=== PATIENT | female | born 1960 | race Caucasian/White ===

== ENCOUNTER 2017-06-22 11:51 | Emergency (ER) | payer MEDICARE ==
[~2017-06-22] VITALS: Ht 160 cm; Wt 66.7 kg
[~2017-06-22 11:51] MED LIST: ADDERALL 20 MG20 MG PO; SOMA250 MG PO; VALIUM5 MG PO
--- OUTSIDE RECORDS SUMMARY | 2017-06-22 11:54 | XMS REPORT ---
Author Author [facility] Address Unknown Phone Unavailable Care Team Providers Care Medical Reception Specialist Name Role Phone IRINA OHARA Unavailable Unavailable Problems This patient has no known problems. Allergies, Adverse Reactions, Alerts This patient has no known allergies or adverse reactions. Medications This patient has no known medications. Results Test Description Test Time Test Comments Text Results Atomic Results Result Comments MRI SPINE LUMBAR WO [place] [address] Patient Name: MARTA BRAMBILA MR #: [id number] : 1960 Age/Sex: 56/F Req #: [id number] Adm Physician: Ordered by: IRINA OHARA M.D. Report #: [id number] Location: CT Room/Bed: Procedure: [id number] MRI/MRI SPINE LUMBAR WO Exam Date: 11/29/16 Exam Time: 1115 REPORT STATUS: Signed History: Several falls Comparison studies: None Technique: Sagittal, coronal and axial T2 , sagittal T1 and IR, axial spin density oblique. Intravenous contrast: None Findings: Number of lumbar vertebral bodies:5 Alignment: Normal lordosis.No scoliosis. Soft tissues: No T2 hyperintense inflammatory changes. Partially visualized T2 round hyperintensities of the right lobe of the liver, largest one measuring approximately 1.2 cm, this may represent hemangiomas or cysts. Paraspinal muscles: No signal abnormalities. No atrophy. Lower thoracic cord:Normal in signal and morphology. The tip of the conus is at L1. Cauda equina: No masses. No arachnoiditis. Vertebrae: Normal in height and signal intensity. No compression fractures, infection or neoplasm. Degenerative changes: At T12-L1, disc degeneration with loss of T2 signal and decreased intervertebral space. Patent canal and foramina L1-L2: Disc degeneration with loss of T2 signal and decreased intervertebral space. Partially without significant canal stenosis or foraminal narrowing. L2-L3: No abnormalities. L3-L4: Mild bilateral facet hypertrophy without significant canal stenosis or foraminal narrowing. L4-L5: Disc degeneration with loss of T2 signal. Diffuse disc bulge with superimposed central disc protrusion, moderate bilateral facet hypertrophy and ligamentum flavum thickening results in mild canal stenosis, narrowing of the bilateral subarticular recesses and mild bilateral foraminal narrowing. Fluid is seen at the left facet joint with periarticular inflammatory changes, secondary to synovitis. Inferiorly projecting 5 mm synovial cyst from the left facet joint. L5-S1: Disc degeneration with loss of T2 signal. Diffuse disc bulge, mild facet hypertrophy results in no significant canal stenosis or foraminal narrowing. Small central annular fissure is incidentally noted. Additional findings: None IMPRESSION : Mild canal stenosis, narrowing of the bilateral subarticular recesses and mild bilateral foraminal narrowing at L4-L5 secondary to diffuse disc bulge, superimposed small central disc protrusion and moderate bilateral facet hypertrophy. Synovitis changes with periarticular inflammation at left L4-L5 facet joint. Other mild degenerative changes without significant canal stenosis or foraminal narrowing. No acute lumbar abnormality. Signed by: DR Jaison Garrett M.D. on 11/29/2016 1:16 PM Dictated By : JAISON SERRANO MD 1316 COPY TO: IRINA OHARA M.D. MRI SPINE CERVICAL WO [place] [address] Patient Name: MARTA BRAMBILA MR #: [id number] : 1960 Age/Sex: 56/F Req #: [id number] Adm Physician: Ordered by: IRINA OHARA M.D. Report #: [id number] Location: CT Room/Bed: Procedure: [id number] MRI/MRI SPINE CERVICAL WO Exam Date: 11/29/16 Exam Time: 1115 REPORT STATUS: Signed History: Several falls. Neck and arm pain for 4 weeks Comparison studies: Same day CT C-spine Technique: Sagittal T1, T2 and IR, axial T2 and axial gradient echo Intravenous contrast: None Findings: Atlantoaxial articulation: Degenerative changes given by decreased predental space, marginal osteophytes and sclerotic changes Alignment: Normal lordosis No scoliosis. Cervicomedullary junction: No abnormalities. Patent foramen magnum. Soft tissues: No gross abnormalities. The cervical spinal cord is normal in size and signal intensity. Surgical changes: Anterior plate, screws and intervertebral spacers from C4 through T1. No evidence of hardware complication Vertebrae: No acute fractures, infection or neoplasm. Degenerative changes: C2-C3: Mild left facet hypertrophy results in no significant canal stenosis and mild left foraminal narrowing . C3-4 : Mild bilateral uncinate process hypertrophy and facet hypertrophy results in no significant canal stenosis and mild left foraminal narrowing . C4-5 : Patent spinal canal and foramina . C5-6: Small central disc osteophyte complex and mild bilateral uncinate process hypertrophy and facet hypertrophy results in no significant canal stenosis and mild bilateral foraminal narrowing . C6-7: Mild bilateral uncinate process hypertrophy without significant canal stenosis and mild bilateral foraminal narrowing . C7-T1: Mild left facet hypertrophy without significant canal stenosis and moderate left foraminal narrowing . Dominant right vertebral artery. T2 hyperintensity at the mid chava, most likely related to small vessel changes. IMPRESSION: 1. Surgical changes of the mid and lower cervical spine as described above without evidence of hardware complication. 2. Moderate left degenerative foraminal narrowing at C7-T1. Other mild degenerative changes of the cervical spine without significant canal stenosis and mild multilevel foraminal narrowing. 3. No acute abnormality. Signed by: DR Jaison Garrett M.D. on 11/29/2016 6:10 PM Dictated By : JAISON SERRANO MD 09 COPY TO: IRINA OHARA M.D. CT CERVICAL SPINE WO [place] [address] Patient Name: MARTA BRAMBILA MR #: [id number] : 1960 Age/Sex: 56/F Req #: [id number] Adm Physician: Ordered by: IRINA OHARA M.D. Report #: [id number] Location: CT Room/Bed: Procedure: [id number] CT/CT CERVICAL SPINE WO Exam Date: 11/29/16 Exam Time: 0825 REPORT STATUS: Signed History: Neck pain , weakness in arm and hands Comparison studies: None Technique: Axial images were obtained through the cervical region. Coronal and sagittal images reconstructed from the axial data. Intravenous contrast: None Findings: Atlantoaxial articulation: Degenerative changes given by decreased predental space, marginal osteophytes and sclerotic changes Alignment: Normal lordosis No scoliosis. Cervicomedullary junction: No abnormalities. Patent foramen magnum. Soft tissues: No gross abnormalities. Surgical changes: Anterior plate, screws and intervertebral spacers from C4 through T1. Lucency surrounding the intervertebral spacer at C7-T1 with partial fusion. No evidence of hardware complication Vertebrae: No acute fractures or neoplasm. Degenerative changes: C2-C3: Mild left facet hypertrophy results in no significant canal stenosis and mild left foraminal narrowing . C3-4: Mild left uncinate process hypertrophy and facet hypertrophy results in no significant canal stenosis and mild left foraminal narrowing . C4-5: Patent spinal canal and foramina . C5-6 : Small central disc osteophyte complex and mild bilateral uncinate process hypertrophy and facet hypertrophy results in no significant canal stenosis and mild bilateral foraminal narrowing . C6-7: Mild bilateral uncinate process hypertrophy without significant canal stenosis and mild bilateral foraminal narrowing . C7-T1: Mild left facet hypertrophy without significant canal stenosis and moderate left foraminal narrowing . IMPRESSION: 1. Surgical changes of the medial lower cervical spine as described above without evidence of hardware complication. 2. Moderate left degenerative foraminal narrowing at C7-T1. Other mild degenerative changes of the cervical spine without significant canal stenosis and mild multilevel foraminal narrowing Signed by: DR Jaison Garrett M.D. on 11/29/2016 1:37 PM Dictated By: JAISON SERRANO MD 1337 Transcribed By: CARITO on 1337 COPY TO: IRINA OHARA M.D. CT LUMBAR SPINE WO [place] [address] Patient Name: MARTA BRAMBILA MR #: [id number] : 1960 Age/Sex: 56/F Req #: [id number] [facility] Physician: Ordered by: IRINA OHARA M.D. Report #: [id number] Location: CT Room/Bed: Procedure: [id number] CT/CT LUMBAR SPINE WO Exam Date: 11/29/16 Exam Time: 824 REPORT STATUS: Signed History: Neck pain, weakness, radiates to upper back for several months. Comparison studies: None Technique: Axial images were obtained from T12 through the sacrum. Coronal and sagittal images reconstructed from the axial data. Intravenous contrast: None Findings: Number of non-rib bearing vertebral bodies: 6. For dictation purposes the last well formed intervertebral disc will be labeled L5-S1. Alignment: Normal lordosis. No scoliosis. Soft tissues: No paraspinal abnormalities. Atherosclerotic calcifications at the abdominal aorta. Paraspinal muscles: Unremarkable. Vertebrae: No fractures, infection or neoplasm. Degenerative changes:. Partially visualized mild disc degeneration at T12-L1 L1-L2: Disc degeneration with L1 inferior endplate sclerotic changes and decreased intervertebral space. Patent canal and foramina L2-L3: No abnormalities. L3-L4: Mild diffuse disc bulge and mild facet hypertrophy without significant canal stenosis and mild bilateral foraminal narrowing L4-L5: Disc degeneration with decreased intervertebral space Mild diffuse disc bulge, moderate facet hypertrophy and ligamentum flavum thickening results in mild canal stenosis and narrowing of the bilateral subarticular recesses and mild bilateral foraminal narrowing L5-S1: Mild disc degeneration with S1 superior endplate sclerotic changes. Mild diffuse disc bulge and facet hypertrophy without significant canal stenosis or foraminal narrowing Sacroiliac joints: No significant degenerative changes. IMPRESSION: 1. Mild bilateral foraminal narrowing, mild canal stenosis and narrowing of the bilateral subarticular recesses at L4-L5 secondary to diffuse disc bulge and moderate posterior element hypertrophy. 2. Other mild degenerative changes as described above without significant canal stenosis or foraminal narrowing. No acute fracture Signed by: DR Jaison Garrett M.D. on 11/29/2016 1:55 PM Dictated By: JAISON SERRANO MD 5800 Transcribed By: CARITO on 6176 COPY TO: IRINA OHARA M.D.
[2017-06-22] MEDS ORDERED: ONDANSETRON HCL INJ 2 MG/ML VIAL IV STA ×2 (12:37→15:24)
[2017-06-22] MEDS ORDERED: CLINDAMYCIN 600MG/D5W 50ML 50 ML IV ONE (12:45)
[2017-06-22] MEDS ORDERED: MORPHINE SULFATE 4 MG/ML SYR IV PRN ×2 (12:45→14:30)
[2017-06-22] MEDS ORDERED: MORPHINE SULFATE 2 MG/ML SYR IV ONE (12:45)
[2017-06-22] MEDS ORDERED: TETANUS/DIPHTHERIA TOX ADULT 0.5 ML SYR IM ONE (12:45)
[2017-06-22] MEDS ORDERED: IOPAMIDOL 300MG/ML 100 ML INFUS..BTL IV ONE (16:15)
[2017-06-22 16:20] VITALS: BP 115/68
[2017-06-22] MEDS ORDERED: HYDROXYZINE HCL25 MG PO (16:37)
== END 2017-06-22 15:20 | disposition home or self-care (01) ==
LOC: FSED 11:51
DX: S51.812A Laceration without foreign body of left forearm, initial encounter (principal); W45.0XXA Nail entering through skin, initial encounter; Y92.015 Private garage of single-family (private) house as the place of occurrence of the external cause; F17.210 Nicotine dependence, cigarettes, uncomplicated
CPT/HCPCS: 12001; 73201; 80053; 85025; 90471; 90714; 99284; J2405; Q9967

== ENCOUNTER 2017-12-29 11:37 | Inpatient (IN) | payer MEDICARE ==
[~2017-12-29] VITALS: Ht 157.5 cm; Wt 72.7 kg
[~2017-12-29 11:37] MED LIST changes: +HYDROXYZINE HCL25 MG PO
[2017-12-29] MEDS ORDERED: ONDANSETRON HCL INJ 2 MG/ML VIAL IV STA (12:12)
[2017-12-29] MEDS ORDERED: SODIUM CHLORIDE 0.9% 1000ML 1,000 ML IV SCH (12:15)
[2017-12-29 12:58] LABS: BASOPHILS # (AUTO) 0.1 (0.0-0.1); BASOPHILS % 0.4 % (0.0-1.0); EOSINOPHILS # (AUTO) 0.1 (0.0-0.4); EOSINOPHILS % 0.5 % (0.0-6.0); HEMATOCRIT 40.9 % (34.2-44.1); HEMOGLOBIN 13.5 g/dL (12.0-16.0); LYMPHOCYTES # (AUTO) 3.5 (1.0-3.2); LYMPHOCYTES % 31.5 % (18.0-39.1); MEAN CORPUSCULAR HEMOGLOBIN 28.4 pg (28-32); MEAN CORPUSCULAR VOLUME 85.9 fL (81-99); MONOCYTES % 8.6 % (4.4-11.3); NEUTROPHILS # (AUTO) 6.6 (2.1-6.9); NEUTROPHILS % 58.6 % (38.7-80.0); PLATELET COUNT 357 x10e3/uL (140-360); RED BLOOD COUNT 4.76 x10e6/uL (3.6-5.1); RED CELL DISTRIBUTION WIDTH 13.9 % (11.7-14.4)
[2017-12-29 12:59] LABS: CLARITY,URINE CLEAR (CLEAR); COLOR,URINE YELLOW (YELLOW); KETONES,URINE NEGATIVE (NEGATIVE); NITRITE,URINE NEGATIVE (NEGATIVE); PROTEIN,URINE DIPSTICK NEGATIVE (NEGATIVE)
[2017-12-29 13:00] LABS: BILIRUBIN,URINE NEGATIVE (NEGATIVE); LEUKOCYTE ESTERASE ,URINE 1+ (NEGATIVE)
[2017-12-29 13:11] LABS: AMPHETAMINES SCREEN,URINE NEGATIVE (NEGATIVE); BACTERIA,URINE FEW /HPF; BENZODIAZEPINES SCREEN,URINE POSITIVE (NEGATIVE); EPITHELIAL CELLS,URINE FEW /LPF; PHENCYCLIDINE SCREEN,URINE NEGATIVE (NEGATIVE)
[2017-12-29 13:19] LABS: ALANINE AMINOTRANSFERASE 15 IU/L (0-55); ALBUMIN 4.3 g/dL (3.5-5.0); ALBUMIN/GLOBULIN RATIO 1.1 (0.8-2.0); ALKALINE PHOSPHATASE 78 IU/L (40-150); ANION GAP 15.2 mmol/L (8-16); BLOOD UREA NITROGEN 13 mg/dL (7-26); BUN/CREATININE RATIO 14 (6-25); CALCIUM 10.4 mg/dL (8.4-10.2); CARBON DIOXIDE 25 mmol/L (22-29); CHLORIDE 102 mmol/L (98-107); EST GLOMERULAR FILTRATION RATE > 60 ML/MIN (60-); GLUCOSE 78 mg/dL (74-118); POTASSIUM 4.2 mmol/L (3.5-5.1); SODIUM 138 mmol/L (136-145)
--- NOTE | 2017-12-29 13:31 | Diagnostic Imaging Report ---
Exam: Radiographs of the abdomen with PA chest radiograph History: Abdominal pain. Difficulty breathing. Distention. Findings: Frontal chest radiograph and radiographs of the abdomen. No consolidated pneumonia, pleural effusion or pneumothorax. No free air under the diaphragm. Nonobstructive bowel gas pattern with a moderate amount of retained feces in the colon. No suspicious calcifications. No acute osseous abnormality. Metallic surgical hardware over the lower cervical spine. Impression: Findings which could be due to constipation. Signed by: Dr. Lon Haider M.D. on 12/29/2017 1:27 PM
[2017-12-29 13:47] LABS: URINE UROBILINOGEN 0.2 mg/dL (0.2 - 1)
[2017-12-29] MEDS ORDERED: DOCUSATE SODIUM LIQD 100 MG/10 ML UDC NG ONE (15:00)
[2017-12-29] MEDS ORDERED: LACTULOSE SYRUP 20 GM/30 ML UDC PO ONE (15:00)
[2017-12-29] MEDS ORDERED: CITRATE OF MAGNESIA 300ML BOTTLE PO ONE (15:00)
[2017-12-29] MEDS ORDERED: SIMETHICONE 80 MG CHEW PO ONE (17:30)
[2017-12-29] MEDS ORDERED: LORAZEPAM INJ 2 MG/ML VIAL IV ONE (18:15)
[2017-12-29] MEDS ORDERED: SODIUM CHLORIDE 0.9% 50ML 50 ML ONE (18:27)
[2017-12-29] MEDS ORDERED: IOPAMIDOL 370 MG/ML 200 ML INFUS..BTL INJ ONE (18:27)
[2017-12-29] MEDS ORDERED: SODIUM CHLORIDE FLUSH 10 ML SYR INJ PRN (19:00)
[2017-12-29] MEDS ORDERED: ONDANSETRON HCL INJ 2 MG/ML VIAL IV PRN (19:00)
[2017-12-29 20:00] VITALS: BP 165/83
[2017-12-29 20:11] VITALS: BP 143/87
--- NOTE | 2017-12-29 20:18 | Diagnostic Imaging Report ---
EXAM: CT Abdomen and Pelvis WITH contrast INDICATION: \S\Abdominal pain \[id number] \S\[id number] COMPARISON: Same day abdominal x-ray TECHNIQUE: Abdomen and pelvis were scanned utilizing a multidetector helical scanner from the lung base to the pubic symphysis after administration of IV contrast. Coronal and sagittal reformations were obtained. Dose modulation, iterative reconstruction, and/or weight based adjustment of the mA/kV was utilized to reduce the radiation dose to as low as reasonably achievable. Routine protocol was performed. Scan was performed when during portal venous phase. IV CONTRAST: 100 mL of Isovue-370 ORAL CONTRAST: Water COMPLICATIONS: None RADIATION DOSE: Total DLP: 287.13 mGy*cm Estimated effective dose: (DLP x 0.015 x size factor) mSv CTDIvol has been reviewed. It is below the limits set by the Radiation Protocol Committee (RPC). FINDINGS: LINES and TUBES: None. LOWER THORAX: Unremarkable HEPATOBILIARY: Multiple well-defined hepatic hypodensities, the largest in segment 4 measuring 3.1 cm with internal attenuation of simple fluid, representing a simple cyst. No biliary ductal dilation. GALLBLADDER: No radio-opaque stones or sludge. No wall thickening. SPLEEN: No splenomegaly. PANCREAS: No focal masses or ductal dilatation. ADRENALS: No adrenal nodules KIDNEYS/URETERS: Kidneys enhance symmetrically. No hydronephrosis. No cystic or solid mass lesions. Small medial right renal inferior pole cyst. No stones. GI TRACT: No abnormal distention, wall thickening, or evidence of bowel obstruction. Fluid within colon. Appendix is normal. PELVIC ORGANS/BLADDER: Anterior right uterine body subserosal fibroid. Otherwise uterus is unremarkable. There is a 4.6 x 3.7 cm left ovarian cyst. Bladder is unremarkable. LYMPH NODES: No lymphadenopathy. VESSELS: There is mild atherosclerotic disease in the aorta and major arterial branches. PERITONEUM / RETROPERITONEUM: No free air or fluid. BONES: Unremarkable. SOFT TISSUES: Unremarkable. IMPRESSION: 1. No definite evidence of acute inflammatory process in the abdomen/pelvis. 2. Fluid within colon without wall thickening or pericolonic fat stranding. Mild enterocolitis cannot be excluded in the appropriate clinical setting. 3. 4.6 cm left ovarian cyst can be further evaluated with pelvic ultrasound. 4. Multiple hepatic cysts. Signed by: Dr. Malcolm Ryan MD on 12/29/2017 8:13 PM
[2017-12-29] MEDS: SODIUM CHLORIDE 0.9% 1000ML 1,000 ML IV SCH (20:30)
[2017-12-30] VITALS (8 sets, daily range): BP systolic 102–132; BP diastolic 61–78
[2017-12-30] MEDS: PEG (High)/E-LYTE SOLN 4,000 ML BTL PO ONE (04:50)
[2017-12-30] MEDS: SODIUM CHLORIDE 0.9% 1000ML 1,000 ML IV SCH ×3 (04:50→20:42)
[2017-12-30 05:26] LABS: BASOPHILS # (AUTO) 0.1 (0.0-0.1); BASOPHILS % 0.9 % (0.0-1.0); EOSINOPHILS # (AUTO) 0.2 (0.0-0.4); EOSINOPHILS % 2.1 % (0.0-6.0); HEMATOCRIT 34.8 % (34.2-44.1); HEMOGLOBIN 11.5 g/dL (12.0-16.0); LYMPHOCYTES # (AUTO) 3.5 (1.0-3.2); LYMPHOCYTES % 34.1 % (18.0-39.1); MEAN CORPUSCULAR HEMOGLOBIN 28.7 pg (28-32); MEAN CORPUSCULAR VOLUME 86.8 fL (81-99); MONOCYTES % 10.3 % (4.4-11.3); NEUTROPHILS # (AUTO) 5.3 (2.1-6.9); NEUTROPHILS % 52.1 % (38.7-80.0); PLATELET COUNT 302 x10e3/uL (140-360); RED BLOOD COUNT 4.01 x10e6/uL (3.6-5.1); RED CELL DISTRIBUTION WIDTH 13.7 % (11.7-14.4)
[2017-12-30 05:50] LABS: ALANINE AMINOTRANSFERASE 12 IU/L (0-55); ALBUMIN 3.6 g/dL (3.5-5.0); ALBUMIN/GLOBULIN RATIO 1.2 (0.8-2.0); ALKALINE PHOSPHATASE 65 IU/L (40-150); ANION GAP 12.1 mmol/L (8-16); BLOOD UREA NITROGEN 9 mg/dL (7-26); BUN/CREATININE RATIO 11 (6-25); CALCIUM 8.7 mg/dL (8.4-10.2); CARBON DIOXIDE 23 mmol/L (22-29); CHLORIDE 107 mmol/L (98-107); EST GLOMERULAR FILTRATION RATE > 60 ML/MIN (60-); GLUCOSE 78 mg/dL (74-118); LIPASE 40 U/L (8-78); POTASSIUM 4.1 mmol/L (3.5-5.1); SODIUM 138 mmol/L (136-145)
[2017-12-30] MEDS ORDERED: CITRATE OF MAGNESIA 300ML BOTTLE PO ONE (08:00)
[2017-12-30] MEDS ORDERED: CITRATE OF MAGNESIA 300ML BOTTLE PO NR (08:15)
[2017-12-30] MEDS: PETROLATUM 30 GM TUBE TP PRN ×2 (09:49→22:59)
[2017-12-30] MEDS: PANTOPRAZOLE 40 MG 10ML VIAL IV SCH (14:19)
[2017-12-30] MEDS: KETOROLAC TROMETHAMINE 30 MG/ML VIAL IV PRN ×2 (14:20→20:30)
[2017-12-30] MEDS: ADDERALL 20MG PO SCH ×2 (15:00→20:42)
[2017-12-30] MEDS: DIAZEPAM 5 MG TAB PO SCH (16:48)
[2017-12-30] MEDS ORDERED: SEROQUEL25 MG PO (16:54)
[2017-12-30] MEDS ORDERED: TRINTELLIX PO (16:54)
[2017-12-30] MEDS ORDERED: PROAIR HFA INH8.5 GM (16:54)
[2017-12-30] MEDS ORDERED: SYMBICORT 16010.2 GM (16:54)
[2017-12-30] MEDS ORDERED: ALBUTEROL SULFATE HFA 8GM INHALATION AEROSOL INH PRN (17:15)
[2017-12-30] MEDS: NICOTINE 14 MG/EA PATCH TOP SCH (20:42)
[2017-12-30] MEDS: QUETIAPINE FUMARATE 25 MG TAB PO SCH (20:42)
[2017-12-30] MEDS ORDERED: SODIUM CHLORIDE 0.9% 50ML 50 ML ONE (22:51)
[2017-12-30] MEDS ORDERED: IOPAMIDOL 370 MG/ML 200 ML INFUS..BTL INJ ONE (22:51)
--- NOTE | 2017-12-30 23:54 | Diagnostic Imaging Report ---
History: Cervical lymphadenopathy. Comparison studies: None Technique: Axial, coronal and sagittal images from the skull base to the thoracic inlet. Coronal and sagittal images reconstructed from the axial data. Intravenous contrast: 100 cc of Isovue 370. Findings: Soft tissues: Nonspecific nasopharyngeal soft tissue prominence. No discrete enhancing mass or fluid collection. Masses: None. Lymph nodes: Mild enlarged nonnecrotic, noncalcified right level 1B lymph node measures 1.1 cm in long axis and left level 1B and measures 1.3 cm in long axis Vessels: Arteries and veins are patent. Glands (thyroid, parotid and submandibular): Normal in size and symmetric. No masses. Orbits: No abnormalities. Paranasal sinuses: Clear. Temporal bones: No abnormalities. Skull base and facial bones: Intact. Cervical spine: Status post anterior cervical spine fusion from level C5-T1. Suboptimal evaluation at this level due to metallic streak artifacts. The metallic hardware is intact. C2-C3: Mild left foraminal stenosis due to facet and uncovertebral arthrosis. IMPRESSION: 1. Nonspecific mildly enlarged bilateral level 1B lymph nodes may be reactive. 2. Nonspecific mild prominence of the nasopharyngeal soft tissue may represent adenoid hyperplasia or lymphoproliferative disease. No discrete mass. Signed by: Dr. Marika Lira M.D. on 12/30/2017 11:52 PM
[2017-12-31] VITALS (8 sets, daily range): BP systolic 113–143; BP diastolic 66–70
--- NOTE | 2017-12-31 00:21 | Diagnostic Imaging Report ---
EXAM: CT CHEST W DATE: 12/30/2017 10:19 PM INDICATION: \S\axillary lymphadenopathy? \S\[id number] \S\[id number] COMPARISON: None TECHNIQUE: Multidetector CT scanning of the chest was performed. Coronal and sagittal multiplanar reformations were obtained. CT low dose techniques were utilized, as applicable. IV Contrast: 100 ml Isovue 370/300 FINDINGS: LUNGS AND PLEURA: Mild biapical paraseptal emphysema. There are several bilateral small nodules, for example measuring 2-4 mm on image 29, 33, 61, subsolid and the left upper lobe measuring 4 mm on image 6. No effusions or pneumothorax. HEART, MEDIASTINUM, VESSELS: Incidental tiny subcentimeter bilateral thyroid nodules. Normal heart size with scattered coronary artery disease. No pericardial effusion. No axillary, hilar or mediastinal adenopathy. UPPER ABDOMEN: Multiple hepatic cysts and partially imaged right renal cysts, better assessed on recent CT abdomen. MUSCULOSKELETAL: Postsurgical changes status post anterior cervical spinal fusion from C5 to T1. Bilateral breast implants are noted. IMPRESSION: 1. No adenopathy, as clinically questioned. 2. Nonspecific small bilateral pulmonary nodules. Consider 12 month follow-up if indicated. Signed by: Dr Kassidy Levy MD on 12/31/2017 12:19 AM
[2017-12-31] MEDS: SODIUM CHLORIDE 0.9% 1000ML 1,000 ML IV SCH ×3 (02:56→16:48)
[2017-12-31 05:42] LABS: BASOPHILS # (AUTO) 0.1 (0.0-0.1); BASOPHILS % 0.7 % (0.0-1.0); EOSINOPHILS # (AUTO) 0.2 (0.0-0.4); EOSINOPHILS % 2.6 % (0.0-6.0); HEMOGLOBIN 11.2 g/dL (12.0-16.0); LYMPHOCYTES # (AUTO) 3.6 (1.0-3.2); LYMPHOCYTES % 44.6 % (18.0-39.1); MEAN CORPUSCULAR HEMOGLOBIN 28.5 pg (28-32); MEAN CORPUSCULAR HGB CONC 32.9 g/dL (31-35); MEAN CORPUSCULAR VOLUME 86.5 fL (81-99); MONOCYTES # (AUTO) 0.8 (0.2-0.8); MONOCYTES % 10.2 % (4.4-11.3); NEUTROPHILS # (AUTO) 3.4 (2.1-6.9); NEUTROPHILS % 41.5 % (38.7-80.0); PLATELET COUNT 270 x10e3/uL (140-360); RED BLOOD COUNT 3.93 x10e6/uL (3.6-5.1); RED CELL DISTRIBUTION WIDTH 13.4 % (11.7-14.4)
[2017-12-31] MEDS: BUDESONIDE/FORMOTEROL 160/4.5MCG INHALER INH SCH (07:19)
[2017-12-31] MEDS: NICOTINE 14 MG/EA PATCH TOP SCH ×2 (08:53→19:56)
[2017-12-31] MEDS: HYDROXYZINE HCL 25 MG TAB PO SCH (08:53)
[2017-12-31] MEDS: PANTOPRAZOLE 40 MG 10ML VIAL IV SCH (08:53)
[2017-12-31] MEDS: DIAZEPAM 5 MG TAB PO SCH ×2 (08:53→16:34)
[2017-12-31] MEDS: ADDERALL 20MG PO SCH ×3 (09:00→21:00)
[2017-12-31] MEDS: TRINTELLIX 15 MG PO SCH (09:02)
[2017-12-31] MEDS: KETOROLAC TROMETHAMINE 30 MG/ML VIAL IV PRN (19:57)
[2017-12-31] MEDS ORDERED: BISACODYL 5 MG TAB EC PO STA (19:57)
[2017-12-31] MEDS: QUETIAPINE FUMARATE 25 MG TAB PO SCH (21:00)
[2017-12-31] MEDS ORDERED: CITRATE OF MAGNESIA 300ML BOTTLE PO ONE ×2 (21:00→23:00)
[2017-12-31] MEDS ORDERED: BISACODYL 5 MG TAB EC PO ONE (21:10)
[2018-01-01] VITALS (7 sets, daily range): BP systolic 107–160; BP diastolic 57–92
[2018-01-01] MEDS: SODIUM CHLORIDE 0.9% 1000ML 1,000 ML IV SCH ×3 (02:52→20:35)
[2018-01-01 05:59] LABS: BASOPHILS # (AUTO) 0.1 (0.0-0.1); EOSINOPHILS # (AUTO) 0.2 (0.0-0.4); EOSINOPHILS % 2.9 % (0.0-6.0); HEMATOCRIT 37.4 % (34.2-44.1); HEMOGLOBIN 11.7 g/dL (12.0-16.0); LYMPHOCYTES # (AUTO) 3.5 (1.0-3.2); LYMPHOCYTES % 44.3 % (18.0-39.1); MEAN CORPUSCULAR HEMOGLOBIN 28.4 pg (28-32); MEAN CORPUSCULAR HGB CONC 31.3 g/dL (31-35); MEAN CORPUSCULAR VOLUME 90.8 fL (81-99); MONOCYTES # (AUTO) 0.9 (0.2-0.8); MONOCYTES % 11.3 % (4.4-11.3); NEUTROPHILS # (AUTO) 3.1 (2.1-6.9); PLATELET COUNT 249 x10e3/uL (140-360); RED BLOOD COUNT 4.12 x10e6/uL (3.6-5.1); RED CELL DISTRIBUTION WIDTH 13.7 % (11.7-14.4)
[2018-01-01] MEDS: BUDESONIDE/FORMOTEROL 160/4.5MCG INHALER INH SCH (06:00)
[2018-01-01 06:19] LABS: HIV 1&2 AB SCREEN NON-REACTIVE (NONREACTIVE)
[2018-01-01] MEDS: DIAZEPAM 5 MG TAB PO SCH ×2 (08:45→17:00)
[2018-01-01] MEDS: HYDROXYZINE HCL 25 MG TAB PO SCH (08:45)
[2018-01-01] MEDS: PANTOPRAZOLE 40 MG 10ML VIAL IV SCH (08:45)
[2018-01-01] MEDS: ADDERALL 20MG PO SCH ×2 (09:00→15:00)
[2018-01-01] MEDS: TRINTELLIX 15 MG PO SCH (09:00)
[2018-01-01] MEDS: KETOROLAC TROMETHAMINE 30 MG/ML VIAL IV PRN ×2 (14:30→20:37)
[2018-01-01] MEDS ORDERED: BISACODYL 5 MG TAB EC PO ONE (15:00)
[2018-01-01] MEDS ORDERED: CITRATE OF MAGNESIA 300ML BOTTLE PO ONE (15:00)
[2018-01-01] MEDS: ACETAMINOPHEN 325 MG TAB PO PRN ×2 (15:15→21:30)
[2018-01-01] MEDS: QUETIAPINE FUMARATE 25 MG TAB PO SCH (21:30)
[2018-01-01] MEDS: NICOTINE 14 MG/EA PATCH TOP SCH (21:30)
[2018-01-01] MEDS ORDERED: MINERAL OIL 132 ML BTL PR PRN (22:30)
[2018-01-02] VITALS (7 sets, daily range): BP systolic 109–133; BP diastolic 56–74
[2018-01-02] MEDS: SODIUM CHLORIDE 0.9% 1000ML 1,000 ML IV SCH (05:51)
[2018-01-02] MEDS: BUDESONIDE/FORMOTEROL 160/4.5MCG INHALER INH SCH (06:00)
[2018-01-02] MEDS: TRINTELLIX 15 MG PO SCH (08:15)
[2018-01-02] MEDS: HYDROXYZINE HCL 25 MG TAB PO SCH (08:15)
[2018-01-02] MEDS: PANTOPRAZOLE 40 MG 10ML VIAL IV SCH (08:15)
[2018-01-02] MEDS: DIAZEPAM 5 MG TAB PO SCH ×2 (08:15→17:00)
[2018-01-02] MEDS ORDERED: ONDANSETRON HCL INJ 2 MG/ML VIAL ONE (15:21)
[2018-01-02] MEDS ORDERED: METOCLOPRAMIDE HCL 10 MG/2ML VIAL ONE (15:21)
--- NOTE | 2018-01-02 15:55 | Operative Report ---
DATE OF PROCEDURE: January 02, 2018 REFERRING PHYSICIAN: Dr. Osei Valentino. PROCEDURES PERFORMED: 1. Esophagogastroduodenoscopy with biopsies. 2. Colonoscopy with polypectomy. INDICATIONS FOR ESOPHAGOGASTRODUODENOSCOPY: Acid reflux, early satiety. INDICATIONS FOR COLONOSCOPY: Fecal impaction, abdominal distention, personal history of colon polyps. MEDICATION: Patient was done under MAC. Please see anesthesiologist's note. PROCEDURE: With the patient in the left lateral decubitus position, the flexible fiberoptic Olympus gastroscope was introduced into the esophagus under direct visualization without any difficulty. There was some patchy erythema noted in the distal esophagus. A minute nodule was noted in the hiatal hernia sac, and that was biopsied. The scope was then advanced with ease into the stomach, traversing a small hiatal hernia. Mucosa overlying the antrum and the body revealed some diffuse erythema and mild to moderate edema, and biopsies were obtained and sent to stain for H. pylori. Pylorus appeared to be of normal contour and shape, was intubated with ease, and the scope was advanced all the way to the 2nd portion of the duodenum. The scope was then withdrawn slowly. Mucosa overlying the proximal 2nd portion and the duodenal bulb appeared to be within normal limits. The scope was then withdrawn back into the stomach and retroflexed, and the mucosa overlying the fundus and the cardia appeared to be within normal limits. The scope was then straightened out. The stomach was decompressed. The scope was subsequently withdrawn. Patient tolerated the procedure well. IMPRESSION: 1. Distal esophagitis, mild. 2. Small sliding hiatal hernia. 3. Minute nodule hiatal hernia sac biopsied. 4. Gastritis biopsied. Biopsies sent to stain for H. pylori. PLAN: Follow up histology. Initiate Protonix 40 mg 1 p.o. q.a.m. a.c. Patient was then turned around and after adequate lubrication of the anal canal, the flexible fiberoptic Olympus colonoscope was inserted into the rectum with ease and advanced all the way to the cecum. It was then withdrawn slowly. Mucosa overlying the cecum, ascending, transverse and descending appeared to be within normal limits. One polyp was hot biopsied from the sigmoid colon. The rectum appeared to be within normal limits. The scope was then retroflexed into the distal rectum and small internal hemorrhoids were noted, none of which was actively bleeding. The scope was then straightened out. It was subsequently withdrawn. Patient tolerated procedure well. An anal fissure was felt in the anal canal on the way out. IMPRESSION: 1. Sigmoid colon polyp hot biopsied. 2. Internal hemorrhoids, none actively bleeding. 3. Anal fissure. PLAN: Follow up histology. Megan Pace 290 mcg 1 p.o. q.a.m. a.c. Check TSH. Patient might benefit from a followup colonoscopy in 5 years. Job#: [id number] EV cc:OSEI VALENTINO DO
[2018-01-02] MEDS ORDERED: MIDAZOLAM HCL 2 MG/2 ML VIAL ONE (19:18)
[2018-01-02] MEDS ORDERED: FENTANYL CITRATE/PF 100MCG/2 ML INJ ONE (19:18)
[2018-01-02] MEDS ORDERED: HYOSCYAMINE SULFATE 0.5 MG/ML AMP ONE (19:21)
[2018-01-02] MEDS ORDERED: PROPOFOL IV EMULSION 10 MG/ML 50 ML VIAL ONE (19:21)
[2018-01-02] MEDS: NICOTINE 14 MG/EA PATCH TOP SCH (20:25)
[2018-01-02] MEDS: QUETIAPINE FUMARATE 25 MG TAB PO SCH (20:27)
[2018-01-02] MEDS: KETOROLAC TROMETHAMINE 30 MG/ML VIAL IV PRN (20:35)
[2018-01-03] VITALS: BP 101/54
[2018-01-03] MEDS: SODIUM CHLORIDE 0.9% 1000ML 1,000 ML IV SCH ×2 (00:21→09:40)
[2018-01-03 04:00] VITALS: BP 89/50
[2018-01-03] MEDS: BUDESONIDE/FORMOTEROL 160/4.5MCG INHALER INH SCH (06:00)
[2018-01-03 07:22] VITALS: BP 150/84
[2018-01-03 07:25] VITALS: BP 150/84
[2018-01-03] MEDS: TRINTELLIX 15 MG PO SCH (09:00)
[2018-01-03] MEDS: DIAZEPAM 5 MG TAB PO SCH (09:23)
[2018-01-03] MEDS: PANTOPRAZOLE 40 MG 10ML VIAL IV SCH (09:23)
[2018-01-03] MEDS: HYDROXYZINE HCL 25 MG TAB PO SCH (09:23)
--- NOTE | 2018-01-03 11:04 | Consultation ---
DATE OF CONSULTATION: Mariza Lancaster is a 57-year-old white female has been referred to me for possible lymphadenopathy. The patient had presented with abdominal pain. SOCIAL HISTORY: Noncontributory. FAMILY HISTORY: Noncontributory. ALLERGIES REPORTED: NONE. MEDICATIONS: At this time consist of 1. Normal saline. 2. Tylenol. 3. Albuterol. 4. Symbicort. 5. Valium. 6. Hydroxyzine. 7. Hyoscyamine. 8. Reglan. 9. Mineral oil. 10. NicoDerm. 11. Zofran. 12. Protonix. 13. Seroquel. REVIEW OF SYSTEMS: HEENT: Normal. CARDIAC: Normal. RESPIRATORY: History of COPD. GI: History of rectal prolapse, reducible. : Normal. MUSCULOSKELETAL: Normal. SKIN AND BREASTS: History of breast implants in the past. PHYSICAL EXAMINATION: GENERAL: Moderately built female. No adenopathy. HEART: Within normal limits. LUNGS: Clear. ABDOMEN: Soft. BREASTS: Exam does not show any masses. RECTAL AND VAGINAL: Examinations deferred. CENTRAL NERVOUS SYSTEM: Essentially normal. EXTREMITIES: Essentially normal. LABORATORY DATA: Shows a hemoglobin of 13.5, hematocrit around 40.9. White count of 11,240. Platelets are reported at 357,000. Chemistry shows a sodium of 138, potassium 4.2, chloride 72, CO2 25, BUN 13, creatinine 0.9, glucose 78. Initially the calcium was reported slightly high at 10.4. Bilirubin 0.5, SGOT 20, SGPT 15, alkaline phosphatase normal at 78. Total protein 3.1, albumin 4.3, globulin slightly high at 3.8. The repeat calcium on 12/30 was reported normal at 8.7. Total proteins were repeated again on 12/30. Globulins were reported normal to be 2.9. IMAGING: Consists of a CAT scan of the chest which did not reveal any adenopathy. Bilateral pulmonary nodules were reported, 2 to 4 mm. Suggestion was to consider a CAT scan and here, soft tissues of the neck reported nonspecific mildly enlarged lymph nodes, 1.1 to 1.3 cm. CAT scan of the abdomen and pelvis was reported essentially normal except for fluid within the colon without wall thickening; 4.6 cm left ovarian cyst; multiple hepatic cysts. IMPRESSION: 1. Transient hypercalcemia, possibly because of dehydration, at a level of 10.4. However, repeat calcium being normal at 8.7. 2. Transient hyperglobulinemia, possibly again due to dehydration, with a level of 3.8 and repeat on 12/30 being normal at 2.9. 3. A 4.6-cm left ovarian cyst. 4. Hepatic cyst, 3.1 cm. 5. Breast implants. 6. Lung nodules, 4 mm. 7. Chronic obstructive pulmonary disease. PLAN, COMMENTS AND SUGGESTIONS: There is no physical evidence of lymphadenopathy. Even though the CAT scans of the soft tissue of the neck were reported as lymphadenopathy, I still could not feel it. This possibly is a viral syndrome. I will confine myself to hematology. I would be more than happy to follow the patient as outpatient if the attending would call and make an appointment for me to keep an eye on the lymphadenopathy in the neck described in the body of the CAT scan. The patient did have an EGD and colonoscopy on . The patient was found to have benign polyps. These have been biopsied. Thank you very much for allowing me to participate in the management of this patient. Job#: [id number] cc:LAZARUS MCCAULEY MD cc:ROCCO MCCAULEY MD cc:EDNA JIMÉNEZ MD
[2018-01-03 11:14] VITALS: BP 117/72
[2018-01-04] MEDS ORDERED: PANTOPRAZOLE SOD 40 MG TABEC PO SCH (07:30)
== END 2018-01-03 14:45 | disposition home or self-care (01) | DRG 866 ==
LOC: ER 11:37 → ERHOLD 18:56 → MED/SURG3 19:46 → OBSVTOIN 01-02 11:02
PROC: 0DBN8ZX Excision of Sigmoid Colon, Via Natural or Artificial Opening Endoscopic, Diagnostic (ICD-10-PCS; 2018-01-02)
PROC: 0DB48ZX Excision of Esophagogastric Junction, Via Natural or Artificial Opening Endoscopic, Diagnostic (ICD-10-PCS; principal; 2018-01-02 13:00)
PROC: 0DB78ZX Excision of Stomach, Pylorus, Via Natural or Artificial Opening Endoscopic, Diagnostic (ICD-10-PCS; 2018-01-02 13:00)
DX: B34.9 Viral infection, unspecified (principal); K59.09 Other constipation; K62.3 Rectal prolapse; E83.52 Hypercalcemia; E86.0 Dehydration; R77.1 Abnormality of globulin; N83.202 Unspecified ovarian cyst, left side; K76.89 Other specified diseases of liver; J44.9 Chronic obstructive pulmonary disease, unspecified; R91.8 Other nonspecific abnormal finding of lung field; K29.70 Gastritis, unspecified, without bleeding; K63.5 Polyp of colon; K64.8 Other hemorrhoids; K60.2 Anal fissure, unspecified; K44.9 Diaphragmatic hernia without obstruction or gangrene; K20.9 Esophagitis, unspecified; F41.8 Other specified anxiety disorders; M54.9 Dorsalgia, unspecified; G89.29 Other chronic pain
CPT/HCPCS: 36415; 43239; 45384; 70491; 71260; 74022; 74177; 80053; 80307; 81001; 82948; 83615; 83625; 83690; 83880; 84484; 85025; 85379; 86140; 86308; 86644; 86645; 86663; 86664; 86665; 87390; 87400; 88302; 88305; 88312; 94640; 99284; G0378; G0433; G0435; J1885; J1980; J2060; J2250; J2405; J2765; J3410; J7030; Q9967

== ENCOUNTER → 2018-09-06 | Outpatient (CLI) | payer MEDICARE ==
[~2018-09-06] MED LIST changes: +IOPAMIDOL 370 MG/ML 200 ML INFUS..BTL INJ ONE; +PROAIR HFA INH8.5 GM; +SEROQUEL25 MG PO; +SODIUM CHLORIDE 0.9% 50ML 50 ML ONE; +SYMBICORT 16010.2 GM; +TRINTELLIX PO
--- NOTE | 2018-09-06 08:47 | Diagnostic Imaging Report ---
EXAM: CT Abdomen and Pelvis WITH contrast INDICATION: Abdominal Pain COMPARISON: CT Abdomen/Pelvis with contrast 12/29/2018. TECHNIQUE: Abdomen and pelvis were scanned utilizing a multidetector helical scanner from the lung base to the pubic symphysis after administration of IV contrast. No oral contrast was administered. Coronal and sagittal reformations were obtained. Routine protocol was performed. Scan was performed when during portal venous phase. IV CONTRAST: 100 cc of Isovue 370 COMPLICATIONS: None RADIATION DOSE: Total DLP: 475.6 mGy*cm Dose modulation, iterative reconstruction, and/or weight based adjustment of the mA/kV was utilized to reduce the radiation dose to as low as reasonably achievable. FINDINGS: LINES and TUBES: None. LOWER THORAX: Scattered coronary atherosclerosis. HEPATOBILIARY: Multiple hepatic cysts, largest in segment 4. Other subcentimeter hypodense lesions are too small to characterize, but likely represent cysts. No evidence of solid mass. No biliary ductal dilation. GALLBLADDER: Decompressed. No radio-opaque stones or sludge. No wall thickening. SPLEEN: No splenomegaly. PANCREAS: No focal masses or ductal dilatation. ADRENALS: No adrenal nodules KIDNEYS/URETERS: Kidneys enhance symmetrically. No evidence of hydronephrosis, solid mass, or stone. Right inferior pole simple appearing cyst. GI TRACT: No evidence of wall thickening or distension. Appendix is normal. PELVIC ORGANS/BLADDER: Anterior right uterine body subserosal fibroid. Slight interval increase in size of a left ovarian cyst, measuring up to 5.5 cm, previously 5.0 cm. LYMPH NODES: No lymphadenopathy. VESSELS: There are scattered atherosclerotic calcifications in the aorta and branch vessels. There are separate origins of the common hepatic artery and splenic artery from the aorta. PERITONEUM / RETROPERITONEUM: No free air or fluid. BONES AND SOFT TISSUES: Bilateral breast implants. CONCLUSION: No acute CT findings in the abdomen or pelvis. Interval increase in size of left ovarian cyst, measuring up to 5.5 cm. Recommend pelvic ultrasound for further evaluation. Signed by: Dr. Umair Boyer MD on 09/06/2018 8:44 AM
== END ==
LOC: CT 07:14
PROVIDERS: ATTEND Internal Medicine Gastroenterology
DX: R10.84 Generalized abdominal pain (principal)
CPT/HCPCS: 74177; Q9967

== ENCOUNTER → 2018-11-19 | Outpatient (CLI) | payer MEDICARE ==
[~2018-11-19] MED LIST changes: -IOPAMIDOL 370 MG/ML 200 ML INFUS..BTL INJ ONE; -SODIUM CHLORIDE 0.9% 50ML 50 ML ONE
--- NOTE | 2018-11-19 16:35 | Diagnostic Imaging Report ---
Hepatobiliary Scan with Gallbladder Ejection Fraction Clinical information: Upper abdominal pain Report: Following intravenous administration of 6.8 millicuries of Tc-99m mebrofenin, dynamic images of the abdomen in the anterior projection were obtained through 46 minutes. Sincalide (CCK analog) 1.4 micrograms was administered intravenously over 30 minutes with additional imaging for determination of gallbladder ejection fraction. Perfusion to the liver is normal. Extraction of tracer from the blood pool by the liver parenchyma is normal. Tracer is seen promptly within the biliary tract. The gallbladder begins to fill by 38 minutes post-injection of tracer and fills adequately. Tracer is seen in the small bowel by 27 minutes. The gallbladder ejection fraction with administration of sincalide is 90% (normal greater than 40%). Impression: 1. Filling of the gallbladder excludes the diagnosis of acute cystic duct obstruction/acute cholecystitis. 2. Normal gallbladder ejection fraction of 90% does not support the clinical diagnosis of chronic cholecystitis/gallbladder dyskinesia. Signed by: Dr. Irina Hoff M.D. on 11/19/2018 4:32 PM
== END ==
LOC: NM 12:56
PROVIDERS: ATTEND Internal Medicine Gastroenterology
DX: R10.10 Upper abdominal pain, unspecified (principal)
CPT/HCPCS: 78227; A9537

== ENCOUNTER → 2018-12-18 | Outpatient (CLI) | payer MEDICARE ==
--- NOTE | 2018-12-19 15:33 | Diagnostic Imaging Report ---
Solid-phase gastric emptying study Reason for examination: Bloating The protocol used for this study is based on the Consensus Recommendations for Gastric Scintigraphy by the [place] [employer] and the Society of [employer]. Clinical information: The patient is not diabetic. The patient has not had previous gastrointestinal surgery. The patient is not on any medications expected to affect gastric motility. The patient has been fasting for at least 6 hours prior to this exam. Radiopharmaceutical: Tc-99m sulfur colloid 1 mCi Report: The patient is allergic to eggs and dairy products. The radiopharmaceutical was added to 1 packet of instant oatmeal that was then prepared with water. The patient took the meal orally without difficulty. Images were obtained of the abdomen in the anterior and posterior projections at 10 minutes post the meal and at 1and 2 hours. Uptake was determined from the geometric mean of the anterior and posterior counts and the counts were corrected for decay of the radiolabel. The percent gastric retention of the labeled meal at: 1 hour was 23% (normal <50%) 2 hours was 1% (normal <20%) 3-hour and 4-hour measurements were not obtained because the gastric retention was less than 10% at 2 hours. Impression Study performed with labeled instant oatmeal because patient is allergic to eggs and dairy products. Gastric emptying is normal for labeled meal without fat. Scan findings do not support the clinical diagnosis of gastroparesis. Signed by: Dr. Irina Hoff M.D. on 12/19/2018 3:30 PM
== END ==
LOC: NM 07:57
PROVIDERS: ATTEND Internal Medicine Gastroenterology
DX: R14.0 Abdominal distension (gaseous) (principal)
CPT/HCPCS: 78264; A9541

== ENCOUNTER → 2020-09-09 | Outpatient (CLI) | payer MEDICARE | LOC: MAMMO 10:08 | PROVIDERS: ATTEND Obstetrics & Gynecology | DX: Z12.31 Encounter for screening mammogram for malignant neoplasm of breast (principal) | CPT/HCPCS: 77067 ==

== ENCOUNTER 2022-02-15 12:40 | Emergency (ER) | payer MEDICARE ==
[~2022-02-15] VITALS: Ht 157.5 cm; Wt 72.6 kg
[~2022-02-15 12:40] MED LIST changes: -CEFDINIR300 MG PO; -IOPAMIDOL 370 MG/ML 100 ML INFUS..BTL INJ ONE
[2022-02-15] MEDS ORDERED: SODIUM CHLORIDE FLUSH 10 ML SYR IV PRN (13:12)
[2022-02-15 13:45] LABS: CLARITY,URINE CLEAR (CLEAR); COLOR,URINE YELLOW (YELLOW); KETONES,URINE NEGATIVE (NEGATIVE); LEUKOCYTE ESTERASE ,URINE MODERATE (NEGATIVE); NITRITE,URINE NEGATIVE (NEGATIVE); PROTEIN,URINE DIPSTICK NEGATIVE (NEGATIVE); URINE UROBILINOGEN 0.2 mg/dL (0.2 - 1)
[2022-02-15 14:02] LABS: BASOPHILS # (AUTO) 0.1 (0.0-0.1); BASOPHILS % 0.8 % (0.0-1.0); EOSINOPHILS # (AUTO) 0.1 (0.0-0.4); EOSINOPHILS % 0.8 % (0.0-6.0); HEMATOCRIT 42.9 % (34.2-44.1); HEMOGLOBIN 13.6 g/dL (12.0-16.0); LYMPHOCYTES # (AUTO) 3.4 (1.0-3.2); MEAN CORPUSCULAR HEMOGLOBIN 30.6 pg (28-32); MEAN CORPUSCULAR HGB CONC 31.7 g/dL (31-35); MEAN CORPUSCULAR VOLUME 96.4 fL (81-99); MONOCYTES % 9.6 % (4.4-11.3); NEUTROPHILS # (AUTO) 5.7 (2.1-6.9); NEUTROPHILS % 55.5 % (38.7-80.0); PLATELET COUNT 278 x10e3/uL (140-360); RED BLOOD COUNT 4.45 x10e6/uL (3.6-5.1); RED CELL DISTRIBUTION WIDTH 11.9 % (11.7-14.4)
[2022-02-15 14:03] LABS: BACTERIA,URINE FEW /HPF; EPITHELIAL CELLS,URINE FEW /LPF; RBC,URINE 0-5 /HPF (0-5)
[2022-02-15 14:21] LABS: INR 0.86; PROTHROMBIN TIME 12.5 seconds (11.9-14.5)
[2022-02-15 14:22] LABS: PARTIAL THROMBOPLASTIN TIME 41.4 seconds (23.8-35.5)
[2022-02-15 14:33] LABS: ALBUMIN/GLOBULIN RATIO 1.1 (0.8-2.0); ANION GAP 16.1 mmol/L (8-16); CALCIUM 9.2 mg/dL (8.4-10.2); CREATININE, SERUM 0.77 mg/dL (0.57-1.11); POTASSIUM 4.1 mmol/L (3.5-5.1)
[2022-02-15] MEDS ORDERED: CEFDINIR300 MG PO (16:57)
[2022-02-16] MEDS ORDERED: IOPAMIDOL 370 MG/ML 100 ML INFUS..BTL INJ ONE (00:43)
== END 2022-02-15 19:00 | disposition home or self-care (01) ==
LOC: ER 12:52
DX: R50.9 Fever, unspecified (principal); N30.90 Cystitis, unspecified without hematuria; R10.11 Right upper quadrant pain; D17.71 Benign lipomatous neoplasm of kidney; K76.89 Other specified diseases of liver; R19.09 Other intra-abdominal and pelvic swelling, mass and lump
CPT/HCPCS: 36415; 71045; 74178; 80053; 81001; 83690; 84484; 85025; 85610; 85730; 93005; 99284; Q9967

== ENCOUNTER → 2022-02-15 | Outpatient (CLI) | payer MEDICARE ==
[~2022-02-15] MED LIST changes: +CEFDINIR300 MG PO; +IOPAMIDOL 370 MG/ML 100 ML INFUS..BTL INJ ONE
== END ==
LOC: US 08:47
PROVIDERS: ATTEND Internal Medicine Cardiovascular Disease
DX: K76.89 Other specified diseases of liver (principal); R94.30 Abnormal result of cardiovascular function study, unspecified
CPT/HCPCS: 76700; Q9967

== ENCOUNTER → 2022-08-03 | Outpatient (CLI) | payer MEDICARE ==
[~2022-08-03] MED LIST changes: +ASPIRIN EC81 MG PO; +CEFDINIR300 MG PO; +CRESTOR10 MG PO; +FLUOXETINE HCL20 MG PO; +MELATONIN3 MG PO; +METOPROLOL SUCC50 MG PO; +PROTONIX20 MG PO; +SENOKOT-S TABL1 EACH PO; +VITAMIN D3 COM1 EACH PO
== END ==
LOC: MAMMO 08:30
PROVIDERS: ATTEND Obstetrics & Gynecology
DX: Z12.31 Encounter for screening mammogram for malignant neoplasm of breast (principal)
CPT/HCPCS: 77067

== ENCOUNTER → 2024-07-24 | Day surgery (SDC) | payer MEDICARE ==
[~2024-07-24] MED LIST changes: +AREDS 2; +BENADRYL25 M1 PO; +FENTANYL CITRATE/PF 100MCG/2 ML INJ ONE; +GLUCAGON FOR INJ 1 MG VIAL ONE; +LACTATED RINGER'S 1,000 ML ONE; +LIDOCAINE HCL 2% LOCAL INJ 5 ML SDV VIAL INJ ONE; +METOPROLOL TARTRATE INJ 1 MG/ML VIAL ONE; +ONDANSETRON HCL INJ 2MG/ML 2ML 2 MG/ML VIAL ONE; +PHENERGAN25 MG/1 ML PO; +PROBIOTIC & AC1 EACH PO; +PROPOFOL IV EMULSION 10 MG/ML 20 ML VIAL ONE; +PROPOFOL IV EMULSION 50 ML IV ONE
[2024-07-24 16:50] VITALS: TEMP 97.2
[2024-07-24 17:15] VITALS: BP 111/91; PULSE 78; RESP 16; O2SAT 98
== END | disposition home or self-care (01) ==
LOC: OR 13:04
PROVIDERS: ATTEND Internal Medicine Gastroenterology
DX: K29.50 Unspecified chronic gastritis without bleeding (principal); D12.4 Benign neoplasm of descending colon; K21.9 Gastro-esophageal reflux disease without esophagitis; K44.9 Diaphragmatic hernia without obstruction or gangrene; K20.90 Esophagitis, unspecified without bleeding; K64.8 Other hemorrhoids; Z71.3 Dietary counseling and surveillance; I10 Essential (primary) hypertension; E78.5 Hyperlipidemia, unspecified; J44.9 Chronic obstructive pulmonary disease, unspecified; E27.9 Disorder of adrenal gland, unspecified; F17.210 Nicotine dependence, cigarettes, uncomplicated; Z71.6 Tobacco abuse counseling; Z88.6 Allergy status to analgesic agent; Z88.0 Allergy status to penicillin; Z79.82 Long term (current) use of aspirin; Z79.899 Other long term (current) drug therapy; Z80.0 Family history of malignant neoplasm of digestive organs
CPT/HCPCS: 43239; 45385; 88305; J1610; J2003; J2405; J2470; J2704 ×2; J3010; J7121; 45378

== ENCOUNTER → 2024-08-06 | Outpatient (REF) | payer MEDICARE ==
[~2024-08-06] MED LIST changes: -FENTANYL CITRATE/PF 100MCG/2 ML INJ ONE; -GLUCAGON FOR INJ 1 MG VIAL ONE; +IOPAMIDOL 370 MG/ML 100 ML INFUS..BTL INJ ONE; -LACTATED RINGER'S 1,000 ML ONE; -LIDOCAINE HCL 2% LOCAL INJ 5 ML SDV VIAL INJ ONE; -METOPROLOL TARTRATE INJ 1 MG/ML VIAL ONE; -ONDANSETRON HCL INJ 2MG/ML 2ML 2 MG/ML VIAL ONE; -PROPOFOL IV EMULSION 10 MG/ML 20 ML VIAL ONE; -PROPOFOL IV EMULSION 50 ML IV ONE
[2024-08-06 13:51] LABS: CREATININE, SERUM 0.78 mg/dL (0.57-1.11)
== END ==
LOC: CT 12:41
PROVIDERS: ATTEND Nurse Practitioner
DX: R14.0 Abdominal distension (gaseous) (principal); K29.70 Gastritis, unspecified, without bleeding; R10.84 Generalized abdominal pain; E27.9 Disorder of adrenal gland, unspecified
CPT/HCPCS: 36415; 74177; 82565; 84520; Q9967

== ENCOUNTER → 2024-09-30 | Outpatient (REF) | payer MEDICARE ==
[~2024-09-30] MED LIST changes: -IOPAMIDOL 370 MG/ML 100 ML INFUS..BTL INJ ONE
== END ==
LOC: US 06:59
PROVIDERS: ATTEND Internal Medicine Gastroenterology
DX: R10.84 Generalized abdominal pain (principal)
CPT/HCPCS: 76700